=== PATIENT | female | born 1995 | race Hispanic/Latino ===

== ENCOUNTER 2018-09-21 10:39 | Observation (INO) | payer MEDICAID ==
[~2018-09-21 10:39] MED LIST: FERR-52 PO; IRON-23 PO; PREN1TAB80 PO; PREN1TAB89 PO
[2018-09-21 11:43] LABS: BASOPHILS % (AUTO) 0.7 % (0.0-5.0); LYMPHOCYTES % (AUTO) 18.1 % (21.0-51.0); MEAN CORPUSCULAR HEMOGLOBIN 21.8 pg (27.0-33.0); MEAN CORPUSCULAR VOLUME 68.2 fL (80-100); MONOCYTES % (AUTO) 4.8 % (3.0-13.0); NEUTROPHILS % (AUTO) 75.4 % (40.0-77.0); PLATELET COUNT (AUTO) 295 K/uL (130-400); RED BLOOD CELL COUNT(AUTO) 4.54 MIL/uL (4.00-5.50); RED CELL DISTRIBUTION WIDTH 18.7 % (11.0-15.5); WHITE BLOOD COUNT (AUTO) 9.2 K/uL (4.8-10.8)
[2018-09-21 11:56] LABS: CREATININE 0.6 mg/dL (0.5-1.5); POTASSIUM 3.5 mmol/L (3.5-5.1)
[2018-09-21] MEDS ORDERED: MORPHINE SULFATE 4 MG/1ML SYG ONE ×2 (13:09→15:36)
[2018-09-21] MEDS ORDERED: ONDANSETRON HCL 4 MG/2 ML VIAL ONE ×2 (13:09→18:02)
[2018-09-21] MEDS ORDERED: LIDOCAINE PF 2% 5ML ABBOJECT ONE (17:37)
[2018-09-21] MEDS ORDERED: ROCURONIUM 10MG/1ML SYR 10 MG/ML ML ONE (17:37)
[2018-09-21] MEDS ORDERED: SUCCINYLCHOLINE 200MG/10ML SYR ONE (17:37)
[2018-09-21] MEDS ORDERED: MIDAZOLAM HCL 1 MG/ML 2ML VIAL ONE ×2 (17:38→18:21)
[2018-09-21] MEDS ORDERED: FENTANYL CITRATE PF 50 MCG/1 ML 2ML VIAL ONE (17:38)
[2018-09-21] MEDS ORDERED: PROPOFOL 10 MG/ML 20ML VIAL IV ONE (17:38)
[2018-09-21] MEDS ORDERED: METHYLERGONOVINE MALEATE 0.2 MG/1 ML ML ONE (17:43)
[2018-09-21] MEDS ORDERED: OXYTOCIN 10 USP UNITS/ML ONE (17:49)
[2018-09-21] MEDS ORDERED: METHYLERGONOVINE MALEATE 0.2 MG/1 ML ML IM SCH (20:00)
== END 2018-09-21 21:50 | disposition home or self-care (01) ==
LOC: EDH 10:39 → LDH 10:40
PROVIDERS: ADMIT Obstetrics & Gynecology; ATTEND Obstetrics & Gynecology
DX: O03.4 Incomplete spontaneous abortion without complication (principal); O26.891 Other specified pregnancy related conditions, first trimester; M06.9 Rheumatoid arthritis, unspecified; R41.0 Disorientation, unspecified; Z3A.11 11 weeks gestation of pregnancy
CPT/HCPCS: 36415; 59812; 76817; 80048; 81025; 84702; 85025; 86900; 86901; 88305; 96372; 99284; A4606; G0378 ×11; J0330; J2001; J2210 ×2; J2250 ×2; J2270 ×2; J2405 ×2; J2590; J2704; J3010; J7120

== ENCOUNTER 2018-12-15 00:42 | Emergency (ER) | payer MEDICAID, OTHER ==
[2018-12-15] MEDS ORDERED: LIDOCAINE HCL 2% JELLY 5 ML ONE (01:51)
[2018-12-15] MEDS ORDERED: FLUCONAZOLE 100 MG TAB ONE (01:51)
== END 2018-12-15 02:00 | disposition home or self-care (01) ==
LOC: EDH 00:42
DX: S31.41XA Laceration without foreign body of vagina and vulva, initial encounter (principal); B37.3 Candidiasis of vulva and vagina; X58.XXXA Exposure to other specified factors, initial encounter; Y93.89 Activity, other specified; Y92.89 Other specified places as the place of occurrence of the external cause; Y99.8 Other external cause status

== ENCOUNTER 2019-12-31 13:38 | Emergency (ER) | payer MEDICAID ==
[2019-12-31 14:41] LABS: BASOPHILS % (AUTO) 0.4 % (0.0-5.0); EOSINOPHILS % (AUTO) 0.8 % (0.0-8.0); HEMATOCRIT 32.7 % (36-48); LYMPHOCYTES % (AUTO) 23.1 % (21.0-51.0); MEAN CORPUSCULAR VOLUME 66.7 fL (79-99); NEUTROPHILS % (AUTO) 71.2 % (40.0-77.0); PLATELET COUNT (AUTO) 394 K/uL (130-400); RED CELL DISTRIBUTION WIDTH 18.6 % (11.0-15.5); WHITE BLOOD COUNT (AUTO) 10.7 K/uL (4.8-10.8)
== END 2019-12-31 16:50 | disposition home or self-care (01) ==
LOC: EDH 13:38
DX: O20.0 Threatened abortion (principal); Z98.890 Other specified postprocedural states; Z3A.10 10 weeks gestation of pregnancy
CPT/HCPCS: 36415; 76801; 84702; 85025